=== PATIENT | female | born 2000 | race Caucasian/White ===

== ENCOUNTER 2023-06-02 12:36 | Outpatient (CLI) | payer MEDICAID, SELFPAY | END 2023-06-02 12:37 | disposition home or self-care (01) | LOC: NFLDREF 06-06 12:19 | PROVIDERS: Visit Provider Nurse Practitioner Family | DX: R11.0 Nausea (principal); R30.0 Dysuria | CPT/HCPCS: 87086 ==

== ENCOUNTER 2024-01-15 07:05 | Outpatient (CLI) | payer MEDICAID, SELFPAY ==
--- NOTE | 2024-01-15 07:15 | CRLHL7_ITS ---
For Patients: As a result of the Century Cures Act, medical imaging exams and procedure reports are released immediately into your electronic medical record. You may view this report before your referring provider. If you have questions, please contact your health care provider. INDICATION: Dating/viability TECHNIQUE: Ultrasound OB pelvis transabdominal and transvaginal. Real-time woods-scale imaging of the pelvis was performed. COMPARISON: None. FINDINGS: There is a single intrauterine gestation. The embryo demonstrates a regular cardiac rate measuring 167 beats per minute. The embryo`s crown rump length measurement of 2.2 cm corresponds to a gestational age of 8 weeks 6 days with a sonographic due date of 08/20/2024. There is a small hypoechoic collection adjacent to the gestational sac measuring 0.7 x 0.6 x 0.6 centimeters There is a normal appearing yolk sac. There are no gross abnormalities noted within the embryo at this early state of development. The placenta has not yet developed. There is no sign of perigestational hemorrhage. The ovaries are of normal size. There are no suspicious fluid collections noted in the cul-de-sac. IMPRESSION: Single viable intrauterine with gestational age of 8 weeks 6 days. heart rate of 167 beats per minute. Small perigestational hemorrhage measuring 0.7 centimeters. Dictated by Van Lagunas MD @ 01/15/2024 11:29:46 AM (Electronically Signed)
== END 2024-01-15 07:06 | disposition home or self-care (01) ==
LOC: US 07:06
PROVIDERS: Visit Provider Physician Assistant
DX: Z34.91 Encounter for supervision of normal pregnancy, unspecified, first trimester (principal); Z3A.08 8 weeks gestation of pregnancy
CPT/HCPCS: 76817; 86592; 86703; 86704; 86706; 86762; 86787; 86803; 86850; 86900; 86901; 87086; 87340; 87491; 87591

== ENCOUNTER 2024-02-20 16:00 | Outpatient (CLI) | payer MEDICAID, SELFPAY | END 2024-02-20 16:01 | disposition home or self-care (01) | LOC: NFLDREF 02-23 09:17 | PROVIDERS: Visit Provider Registered Nurse | DX: N30.90 Cystitis, unspecified without hematuria (principal) | CPT/HCPCS: 87086 ==

== ENCOUNTER 2024-03-02 09:05 | Emergency (ER) | payer MEDICAID, SELFPAY ==
[2024-03-02 09:08] VITALS: BP 116/76; PULSE 130; RESP 16; TEMP 36.6; O2SAT 97; BMI 34.6
--- NOTE | 2024-03-02 09:29 | ED.NAVMDI ---
HPI - Nausea/Vomiting/Diarrhea General Time Seen by Provider: 09:29 Date Seen: 03/02/24 Chief complaint: Nausea/Vomiting Stated complaint: vomiting Time Seen by Provider: 03/02/24 09:29 Source: patient, RN notes reviewed and old records reviewed Mode of arrival: ambulatory Limitations: no limitations History of Present Illness HPI Narrative: Gela is a very pleasant female at approximately 15 weeks of with a history of cholecystectomy and morning sickness who comes to the emergency room with ongoing vomiting and diarrhea. Patient notes the onset of vomiting late last night approximately 2330 hours that has continued throughout the night and into this morning. She also had some loose nonbloody stools associated with this. She notes she does have discomfort in her abdomen-notes that this is in the epigastric area. Denies any low abdominal pain or vaginal bleeding. She has not had recent travel, eaten any uncooked meat or game meat. She did just recently finish an antibiotic for a UTI. Gela notes that she has experienced morning sickness and usually has 1 episode in the morning. The rest of the day is usually just felt as mild nausea. She notes that it has actually been getting better lately. Gela denies any fever cough cold or congestion. Her significant other is present and does not currently have any symptoms. She does note that her son had a ?tummy ache? the other day but no vomiting or diarrhea. Associated nausea: Yes Related Data Home Medications ?Medication ?Instructions ?Recorded ?Confirmed folic acid 400 mcg tablet 0.4 mg PO QDAY 02/12/24 03/02/24 Previous Rx's ?Medication ?Instructions ?Recorded omeprazole 20 mg capsule,delayed 20 mg PO .hs #90 caps 01/15/24 release sertraline 50 mg tablet 50 mg PO QDAY #90 tabs 01/15/24 promethazine 12.5 mg tablet 12.5 - 25 mg (1 - 2 x 12.5 mg) PO 02/12/24 Q4-6H PRN nausea and vomiting #30 tabs Allergies Allergy/AdvReac Type Severity Reaction Status Date / Time No Known Drug Allergies Allergy Verified 02/26/24 12:35 Review of Systems Status of ROS: Reports: 10 or more systems reviewed and unremarkable except as noted in History and below Const: Reports: fatigue; Denies: fever or chills Eyes: Denies: change in vision ENMT: Denies: neck pain, throat swelling or nasal congestion Cardio: Denies: chest pain or shortness of breath with exertion Resp: Denies: shortness of breath or cough GI: Reports: abdominal pain (Epigastric), nausea, vomiting and diarrhea; Denies: blood in stool : Denies: painful urination, urinary frequency, vaginal bleeding or vaginal discharge Musculo: Denies: back pain, neck pain or extremity pain Endo: Reports: fatigue Allergy/Immuno: Denies: throat swelling PFSH PFSH Medical History Vaginal after (08/23/21) ?O34.219 - Maternal care for unspecified type scar from previous delivery (ICD-10) Fructose intolerance ?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 Marital status: Significant other. Anabaptism/cultural needs: no. Chemical or radiation exposure: no. Pre- tobacco use: no. Pre- alcohol use: Occasional. Current tobacco use: no. Current alcohol use: no. Recreational drug use: no. Dietary restrictions: no. Blood transfusion acceptable in an emergency: yes. History of depression or currently depressed: yes. Current or past physical, emotional, or sexual mistreatment: past, no current concerns. Problems that will make it hard to make it to appointments: no. What is your current living situation?: I presently have a place to live Problems where you live: declined to answer In the past 12 months, utilities in danger of being shut off: no In past 12 months, lack of transportation kept you from medical appts, meetings, work, or getting things needed for daily living: no In the past 12 mos, have been you worried that your food would run out before you had money to buy more?: never true In the past 12 mos, the food you bought just didn't last and you didn't have money to buy more?: never true Smoking Status: Never smoker Do you use any of these nicotine containing products: None How often do you have a drink containing alcohol: never How often do you have six or more drinks on one occasion: Never AUDIT-C Alcohol total score: 0 Non-prescribed substance use: denies use How often does anyone, including family, friends and others, physically hurt you: never How often does anyone, including family, friends and others, insult or talk down to you: never How often does anyone, including family, friends and others, threaten you with harm: never How often does anyone, including family, friends and others, scream or curse at you: never Little interest or pleasure in doing things: several days Feeling down, depressed, or hopeless: several days Exam Narrative: Exam Narrative: Alert and oriented. Somewhat pale in appearance but no acute distress. EOM is full. Oral cavity with moist mucous membranes but no excessive saliva and lips are dry. Neck is supple. Heart with a tachycardic rate but normal rhythm. Lungs are clear bilaterally. Abdomen is soft nontender. Lower extremities without edema. Moving all extremities. Const: Vital Signs, click to edit/add: Vital Signs - 24 hr 03/02/24 09:08 03/02/24 10:54 03/02/24 11:22 Temperature 97.8 F Pulse Rate [Pulse Oximeter] 130 H 96 100 Respiratory Rate 16 18 Blood Pressure [Ri ght Upper Arm] 116/76 119/68 Pulse Oximetry 97 98 Oxygen Delivery Me thod Room Air Room Air 03/02/24 13:16 Temperature Pulse Rate [Pulse Oximeter] 106 H Respiratory Rate 20 Blood Pressure [Ri ght Upper Arm] 113/73 Pulse Oximetry 97 Oxygen Delivery Me thod Room Air Documenting provider has reviewed patient's vital signs: yes Course Course ED Course: Differential diagnosis includes but is not limited to gastritis, pancreatitis, hepatitis, viral gastroenteritis, food-borne illness, urinary tract infection. Will place IV and give Gela L of fluid as well as Zofran 4 mg IV. Plan on checking labs to include CBC, comprehensive panel, urinalysis and COVID. Reevaluation(s) Reevaluation #1: Patient noted to be able to drink small amounts and he had a cracker. Urinalysis shows 4+ ketones in the she is given additional L. potassium mildly low at 3.3 and she is given 50 mEq of p.o. potassium. Reevaluation #2: Patient did have a very small emesis after the potassium. However she tells me she was able to keep most of it down. Vital Signs Vital signs: Initial Vital Signs Temperature 97.8 F 03/02/24 09:08 Temperature Source Temporal Artery Scan 03/02/24 09:08 Pulse Rate 130 H 03/02/24 09:08 Respiratory Rate 16 03/02/24 09:08 Blood Pressure 116/76 03/02/24 09:08 Blood Pressure Mean 89 03/02/24 09:08 Blood Pressure Position Supine 03/02/24 09:08 Pulse Oximetry 97 03/02/24 09:08 Oxygen Delivery Method Room Air 03/02/24 09:08 Vital Signs Temperature 97.8 F 03/02/24 09:08 Pulse Rate 130 H 03/02/24 09:08 Respiratory Rate 16 03/02/24 09:08 Blood Pressure 116/76 03/02/24 09:08 Pulse Oximetry 97 03/02/24 09:08 Oxygen Delivery Method Room Air 03/02/24 09:08 Temperature 97.8 F 03/02/24 09:08 Pulse Rate 106 H 03/02/24 13:16 Respiratory Rate 20 03/02/24 13:16 Blood Pressure 113/73 03/02/24 13:16 Pulse Oximetry 97 03/02/24 13:16 Oxygen Delivery Method Room Air 03/02/24 13:16 Medications Administered Medications: Discontinued Medications Generic Name Dose Route Start Last Admin Trade Name Freq PRN Reason Stop Dose Admin Acetaminophen 1,000 mg 03/02/24 11:42 03/02/24 11:50 Acetaminophen 500 Mg Tablet PO 03/02/24 11:43 1,000 mg ONCE ONE Administration Sodium Chloride 1,000 mls @ 1,000 mls/hr 03/02/24 09:45 03/02/24 11:05 0.9 % Sodium Chloride 1000 Ml IV 08/13/24 10:44 Infused .Q1H ZACH Infusion Sodium Chloride 1,000 mls @ 1,000 mls/hr 03/02/24 10:38 03/02/24 12:06 0.9 % Sodium Chloride 1000 Ml IV 03/02/24 11:37 Infused .Q1H ZACH Infusion Ondansetron HCl 4 mg 03/02/24 09:44 03/02/24 10:02 Ondansetron 2 Mg/Ml Inj IVP 03/02/24 09:45 4 mg ONCE ONE Administration Potassium Bicarbonate 50 meq 03/02/24 12:15 03/02/24 12:20 Potassium Bicarb 25 Meq Effervescent Tab PO 03/02/24 12:16 50 meq ONCE ONE Administration MDM - Nausea/Vomiting/Diarrhea MDM Narrative Medical decision making narrative: 1. Nausea vomiting and diarrhea-most likely viral source. Lipase, normal, urinalysis reassuring with no evidence of urinary tract infection, liver function tests within normal limits. Patient had no further stools in the ED. Zofran and fluid seemed to help significantly. A color is much improved. Her heart rate has come down. Would recommend Zofran 4 mg ODT Q 8 hours p.r.n. at home. This is given through our [employer] machine. Recommend pushing fluids with electrolytes including Gatorade, Powerade, Pedialyte. Did state that any food that she would be craving is acceptable. If however she has ongoing vomiting she will need to come into the be evaluated once again for potential admission. 2. Hypokalemia-mild at 3.3. Patient did receive 15 p.o. mEq of potassium and although she did have a small emesis feels that she kept most of this down. 3. -no lower abdominal pain, vaginal bleeding. No evidence of urinary tract infection at this time. 4. Disposition-home with her significant other. Return to the emergency room for worsening symptoms and as needed. Note patient has tested negative for COVID today. Medical Records Attestation: I reviewed the patient's medical records. Lab Data Attestation: I reviewed the patient's lab results. Labs: Lab Results 03/02/24 03/02/24 03/02/24 Range/Units 10:00 10:39 11:05 WBC 14.85 H (4.50-11.00) K/uL RBC 4.64 (4.00-5.20) m/uL Hgb 14.6 (12.0-16.0) gm/dL Hct 41.8 (33.0-51.0) % MCV 90 (80-100) fL MCH 32 (26-34) pg MCHC 35 (32-36) gm/dL RDW Coeff of Adrrell 12.9 (11.5-15.5) % Plt Count 291 (140-440) K/uL Neut % (Auto) 93.0 H (42.0-72.0) % Lymph % (Auto) 4.0 L (20-44) % Sanders % (Auto) 2.7 (0.0-11.0) % Eos % (Auto) 0.0 (0.0-7.0) % Baso % (Auto) 0.1 (0.0-3.0) % Neut # (Auto) 13.80 H (1.7-7.0) K/uL Lymph # (Auto) 0.60 L (0.90-2.90) K/uL Sanders # (Auto) 0.40 (0.00-0.90) K/UL Eos # (Auto) 0.00 (0.00-0.50) K/uL Baso # (Auto) 0.00 (0.00-0.30) K/uL Abs Immat Gran (auto) 0.00 (0.00-0.30) K/uL Imm/Tot Granulo (auto) 0.2 % Sodium 137 (135-149) mmol/L Potassium 3.3 L (3.6-5.1) mmol/L Chloride 105 (96-114) mmol/L Carbon Dioxide 20 (20-32) mmol/L Anion Gap 12 (7-15) mEq/L BUN 10 (5-24) mg/dL Creatinine 0.5 (0.5-1.5) mg/dL Estimated Creat Clear 132.05 Estimated GFR 135 ml/min Glucose 99 (60-115) mg/dL Calcium 9.1 (8.4-10.6) mg/dL Magnesium 1.9 (1.5-2.6) mg/dL Total Bilirubin 0.7 (0.1-1.5) mg/dL AST 28 (12-35) U/L ALT 34 (4-35) U/L Alkaline Phosphatase 106 (40-150) U/L Total Protein 7.8 (6.0-8.3) g/dL Albumin 4.5 (3.3-5.0) g/dL Lipase 41 (23-300) U/L Urine Color Dark yellow (Yellow) Urine Appearance Clear (Clear) Urine pH 5.5 (5.0-8.5) Ur Specific [place] >= 1.030 (1.000-1.030) Urine Protein 1+ A (Negative) Urine Glucose (UA) Negative (Negative) Urine Ketones 4+ A (Negative) Urine Blood Negative (Negative) Urine Nitrite Negative (Negative) Urine Bilirubin 1+ A (Negative) Urine Urobilinogen 0.2 (0.2-1.0) Ur Leukocyte Esterase Negative (Negative) Urine RBC 0-2 (0-2) Urine WBC 0-2 (0-5) Ur Squamous Epith Cells Moderate A (None-Few) Amorphous Sediment Many A (None) Urine Bacteria Few A (None) SARS-CoV-2 (PCR) (Negative) Lab Acknowledgement Test Added 03/02/24 03/02/24 Range/Units 12:15 Unknown WBC (4.50-11.00) K/uL RBC (4.00-5.20) m/uL Hgb (12.0-16.0) gm/dL Hct (33.0-51.0) % MCV (80-100) fL MCH (26-34) pg MCHC (32-36) gm/dL RDW Coeff of Darrell (11.5-15.5) % Plt Count (140-440) K/uL Neut % (Auto) (42.0-72.0) % Lymph % (Auto) (20-44) % Sanders % (Auto) (0.0-11.0) % Eos % (Auto) (0.0-7.0) % Baso % (Auto) (0.0-3.0) % Neut # (Auto) (1.7-7.0) K/uL Lymph # (Auto) (0.90-2.90) K/uL Sanders # (Auto) (0.00-0.90) K/UL Eos # (Auto) (0.00-0.50) K/uL Baso # (Auto) (0.00-0.30) K/uL Abs Immat Gran (auto) (0.00-0.30) K/uL Imm/Tot Granulo (auto) % Sodium (135-149) mmol/L Potassium (3.6-5.1) mmol/L Chloride (96-114) mmol/L Carbon Dioxide (20-32) mmol/L Anion Gap (7-15) mEq/L BUN (5-24) mg/dL Creatinine (0.5-1.5) mg/dL Estimated Creat Clear Estimated GFR ml/min Glucose (60-115) mg/dL Calcium (8.4-10.6) mg/dL Magnesium (1.5-2.6) mg/dL Total Bilirubin (0.1-1.5) mg/dL AST (12-35) U/L ALT (4-35) U/L Alkaline Phosphatase (40-150) U/L Total Protein (6.0-8.3) g/dL Albumin (3.3-5.0) g/dL Lipase (23-300) U/L Urine Color (Yellow) Urine Appearance (Clear) Urine pH (5.0-8.5) Ur Specific [place] (1.000-1.030) Urine Protein (Negative) Urine Glucose (UA) (Negative) Urine Ketones (Negative) Urine Blood (Negative) Urine Nitrite (Negative) Urine Bilirubin (Negative) Urine Urobilinogen (0.2-1.0) Ur Leukocyte Esterase (Negative) Urine RBC (0-2) Urine WBC (0-5) Ur Squamous Epith Cells (None-Few) Amorphous Sediment (None) Urine Bacteria (None) SARS-CoV-2 (PCR) Negative SARS-CoV-2 (Negative) Lab Acknowledgement Test Added Discharge Plan Discharge Clinical Impression: Nausea vomiting and diarrhea Patient Disposition: Home, Self-Care Condition: Improved Additional Instructions: Will send Zofran and anti nausea medication home with you through our [employer] machine. You may be contagious so would revise good handwashing. Seek medical attention if you are worsening. Return to the ER as needed. Prescriptions: No Action folic acid 400 mcg tablet 0.4 mg PO QDAY promethazine 12.5 mg tablet 12.5 - 25 mg PO Q4-6H PRN (Reason: nausea and vomiting) Qty: 30 2RF sertraline 50 mg tablet 50 mg PO QDAY Qty: 90 0RF Rx Instructions: 25mg daily x 1 week, then 50mg daily omeprazole 20 mg capsule,delayed release(DR/EC) 20 mg PO .hs Qty: 90 0RF Follow Up/Referrals: Provider,Not a Local [Primary Care Provider] - Stand Alone Forms: [employer] Info Instructions
[2024-03-02] MEDS: ONDANSETRON 2 MG/ML inj 4 MG IVP (10:02)
[2024-03-02] MEDS: 0.9 % SODIUM CHLORIDE 1000 ml 1,000 ML IV ×2 (10:03→11:10)
[2024-03-02 10:11] LABS: Basophils Percent Auto 0.1 % (0.0-3.0); Hematocrit 41.8 % (33.0-51.0); Hemoglobin* 14.6 gm/dL (12.0-16.0); Immature Granulocytes Pct Auto 0.2 %; Mean Corpuscular HGB Conc 35 gm/dL (32-36); Mean Corpuscular Hemoglobin 32 pg (26-34); Mean Corpuscular Volume 90 fL (80-100); Monocytes Percent Auto 2.7 % (0.0-11.0); Platelet Count* 291 K/uL (140-440); RDW Coefficient of Variation % 12.9 % (11.5-15.5); Red Blood Count 4.64 m/uL (4.00-5.20); White Blood Count* 14.85 K/uL (4.50-11.00)
[2024-03-02 10:16] LABS: Slide Review Reflex No
[2024-03-02 10:32] LABS: Albumin* 4.5 g/dL (3.3-5.0); Chloride* 105 mmol/L (96-114); Potassium* 3.3 mmol/L (3.6-5.1); Sodium* 137 mmol/L (135-149)
[2024-03-02 10:35] LABS: Alanine Aminotransferase* 34 U/L (4-35); Alkaline Phosphatase* 106 U/L (40-150); Anion Gap 12 mEq/L (7-15); Aspartate Amino Transferase* 28 U/L (12-35); Bilirubin Total* 0.7 mg/dL (0.1-1.5); Blood Urea Nitrogen* 10 mg/dL (5-24); Carbon Dioxide* 20 mmol/L (20-32); Creatinine* 0.5 mg/dL (0.5-1.5); Est. Creatinine Clearance* 132.05; Estimated Glomerular Filt Rate 135 ml/min; Glucose* 99 mg/dL (60-115); Total Protein* 7.8 g/dL (6.0-8.3)
[2024-03-02 10:36] LABS: Calcium* 9.1 mg/dL (8.4-10.6)
[2024-03-02 10:49] LABS: Lipase* 41 U/L (23-300)
[2024-03-02 10:54] VITALS: PULSE 96
[2024-03-02 11:13] LABS: Appearance Urine Clear (Clear); Bilirubin Urine 1+ (Negative); Blood Urine Negative (Negative); Color Urine Dark yellow (Yellow); Glucose Urine Negative (Negative); Ketones Urine 4+ (Negative); Leukocyte Esterase Urine Negative (Negative); Nitrite Urine Negative (Negative); Protein Urine 1+ (Negative); Specific Gravity Urine >= 1.030 (1.000-1.030); Urobilinogen Urine 0.2 (0.2-1.0); pH Urine 5.5 (5.0-8.5)
[2024-03-02 11:17] LABS: SARS PCR* Negative SARS-CoV-2 (Negative)
[2024-03-02 11:22] VITALS: BP 119/68; PULSE 100; RESP 18; O2SAT 98
[2024-03-02 11:31] LABS: Amorphous Sediment Urine Many; Bacteria Urine Few; RBC Urine 0-2 (0-2); Squamous Epithelial Cell Urine Moderate (None-Few); WBC Urine 0-2 (0-5)
[2024-03-02] MEDS: ACETAMINOPHEN 500 MG TABLET 1000 MG PO (11:50)
[2024-03-02] MEDS: POTASSIUM BICARB 25 MEQ EFFERVESCENT TAB 50 MEQ PO (12:20)
[2024-03-02 12:46] LABS: Magnesium* 1.9 mg/dL (1.5-2.6)
[2024-03-02 13:16] VITALS: BP 113/73; PULSE 106; RESP 20; O2SAT 97
--- NOTE | 2024-03-02 13:25 | ED.NURSE ---
pt reports throwing up a small amount
== END 2024-03-02 13:36 | disposition home or self-care (01) ==
PROVIDERS: Emergency Provider Family Medicine
DX: R11.2 Nausea with vomiting, unspecified (principal); E87.6 Hypokalemia
CPT/HCPCS: 36415; 80053; 81001; 83690; 83735; 85025; 87086; 87635; 96374; 99283; 99284; A9270; J2405; J7030